=== PATIENT | male | born 1960 | race Two or more races ===

== ENCOUNTER → 2017-04-08 | Outpatient (CLI) | payer OTHER | END | disposition home or self-care (01) | LOC: EMPHLTH 13:30 | PROVIDERS: ATTEND Internal Medicine | DX: Z02.1 Encounter for pre-employment examination (principal) | CPT/HCPCS: 86706; 86735; 86762; 86765; 86787 ==

== ENCOUNTER 2017-07-27 18:35 | Emergency (ER) | payer MEDICAID ==
[~2017-07-27] VITALS: Ht 165.1 cm; Wt 70.5 kg
[2017-07-27] MEDS ORDERED: LOSA50TA37 PO (19:14)
[2017-07-27] MEDS ORDERED: IPRATROPIUM BROMIDE 0.5 MG/2.5 ML NEB SOLUTION NEB ONE (20:30)
[2017-07-27] MEDS ORDERED: ALBUTEROL SULFATE 2.5 MG/0.5 ML NEB SOLUTION NEB ONE (20:30)
[2017-07-27 20:50] VITALS: BP 125/79
== END 2017-07-27 20:52 | disposition home or self-care (01) ==
LOC: EMS 18:36 → EEVIPCON 18:36 → EMS 20:52
DX: J40 Bronchitis, not specified as acute or chronic (principal); I10 Essential (primary) hypertension
CPT/HCPCS: 71046; 94640; 99284; J7613

== ENCOUNTER → 2017-09-25 | Outpatient (CLI) | payer OTHER ==
[~2017-09-25] MED LIST: LOSA50TA37 PO
[2017-09-25 10:58] LABS: BASOPHILS % (AUTO) 0.5 % (0.0-2.0); EOSINOPHILS % (AUTO) 0.5 % (1.0-6.0); HEMATOCRIT 47.5 % (41-53); HEMOGLOBIN 16.5 g/dL (13.5-17.5); LYMPHOCYTES # (AUTO) 1.8 K/uL (1.0-4.8); LYMPHOCYTES % (AUTO) 33.9 % (22.0-44.0); MEAN CORPUSCULAR HEMOGLOBIN 33.3 pg (26.0-34.0); MEAN CORPUSCULAR HGB CONC 34.7 G/dL (31.0-37.0); MEAN CORPUSCULAR VOLUME 96 fL (80-100); MONOCYTES # (AUTO) 0.5 K/uL (0.1-1.0); MONOCYTES % (AUTO) 9.4 % (2.0-9.0); NEUTROPHILS # (AUTO) 2.9 K/uL (1.8-7.7); NEUTROPHILS % (AUTO) 55.7 % (40.0-70.0); PLATELET COUNT (AUTO) 187 K/uL (150-450); RED BLOOD CELL COUNT(AUTO) 4.95 MIL/uL (4.50-5.90); RED CELL DISTRIBUTION WIDTH 13.9 % (11.5-14.5)
[2017-09-25 12:13] LABS: ALANINE AMINOTRANSFERASE 173 U/L (12-78); ALBUMIN 4.5 g/dL (3.4-5.0); ALKALINE PHOSPHATASE 48 U/L (46-116); ANION GAP 8 mmol/L (8-16); ASPARTATE AMINOTRANSFERASE 44 U/L (15-37); BILIRUBIN,TOTAL 0.7 mg/dL (0.1-1.0); CALCIUM, TOTAL 9.2 mg/dL (8.8-10.5); CARBON DIOXIDE 31 mmol/L (22-29); CHLORIDE 104 mmol/L (98-107); CHOL/HDL RATIO 2.4 (4.2-7.3); CHOLESTEROL 191 mg/dL (131-200); CREATININE 1.05 mg/dL (0.60-1.30); GLOMERULAR FILTR. RATE CALC > 60 mL/min (>60); GLUCOSE,RANDOM 101 mg/dL (70-110); HDL CHOLESTEROL 81 mg/dL (40-60); LDL CHOL (CALC.) 99 mg/dL (0-130); POTASSIUM 4.3 mmol/L (3.5-5.1); SODIUM SERUM 143 mmol/L (136-145); THYROID STIMULATING HORMONE 1.95 uIU/mL (0.36-3.74); TOTAL PROTEIN, SERUM 7.9 g/dL (6.4-8.2); TRIGLYCERIDES 54 mg/dL (15-150); UREA NITROGEN, BLOOD 19 mg/dL (7-18)
[2017-09-25 13:20] LABS: PROSTATE SPECIFIC ANTIGEN 2.38 ng/mL (0.00-4.00)
== END | disposition home or self-care (01) ==
LOC: LABPV 08:05
PROVIDERS: ATTEND Internal Medicine Infectious Disease
DX: Z00.00 Encounter for general adult medical examination without abnormal findings (principal); Z12.5 Encounter for screening for malignant neoplasm of prostate; Z12.11 Encounter for screening for malignant neoplasm of colon; E78.5 Hyperlipidemia, unspecified
CPT/HCPCS: 83036; 84153; 84154; 84443

== ENCOUNTER → 2018-06-12 | Outpatient (CLI) | payer OTHER ==
[~2018-06-12] MED LIST changes: -LOSA50TA37 PO; +LOSA50TA64 PO
[2018-06-12 09:37] LABS: BASOPHILS % (AUTO) 0.3 % (0.0-2.0); HEMOGLOBIN 15.7 g/dL (13.5-17.5); LYMPHOCYTES # (AUTO) 2.3 K/uL (1.0-4.8); LYMPHOCYTES % (AUTO) 39.6 % (22.0-44.0); MEAN CORPUSCULAR HEMOGLOBIN 32.9 pg (26.0-34.0); MEAN CORPUSCULAR HGB CONC 34.1 G/dL (31.0-37.0); MEAN CORPUSCULAR VOLUME 97 fL (80-100); MONOCYTES # (AUTO) 0.5 K/uL (0.1-1.0); MONOCYTES % (AUTO) 9.4 % (2.0-9.0); NEUTROPHILS # (AUTO) 2.8 K/uL (1.8-7.7); NEUTROPHILS % (AUTO) 49.7 % (40.0-70.0); PLATELET COUNT (AUTO) 173 K/uL (150-450); RED BLOOD CELL COUNT(AUTO) 4.77 MIL/uL (4.50-5.90); RED CELL DISTRIBUTION WIDTH 13.1 % (11.5-14.5)
[2018-06-12 09:51] LABS: HEMOGLOBIN A1C 5.5 % (4.5-6.2)
[2018-06-12 10:00] LABS: PROSTATE SPECIFIC ANTIGEN 2.09 ng/mL (0.00-4.00)
[2018-06-12 10:04] LABS: ALANINE AMINOTRANSFERASE 35 U/L (12-78); ALBUMIN 3.9 g/dL (3.4-5.0); ALKALINE PHOSPHATASE 47 U/L (46-116); ANION GAP 4 mmol/L (8-16); ASPARTATE AMINOTRANSFERASE 27 U/L (15-37); BILIRUBIN,TOTAL 0.6 mg/dL (0.1-1.0); CALCIUM, TOTAL 9.4 mg/dL (8.8-10.5); CARBON DIOXIDE 32 mmol/L (22-29); CHLORIDE 104 mmol/L (98-107); CHOL/HDL RATIO 2.1 (4.2-7.3); CHOLESTEROL 163 mg/dL (131-200); CREATININE 0.95 mg/dL (0.60-1.30); GLOMERULAR FILTR. RATE CALC > 60 mL/min (>60); GLUCOSE,RANDOM 95 mg/dL (70-110); HDL CHOLESTEROL 78 mg/dL (40-60); LDL CHOL (CALC.) 69 mg/dL (0-130); POTASSIUM 4.1 mmol/L (3.5-5.1); SODIUM SERUM 140 mmol/L (136-145); TOTAL PROTEIN, SERUM 7.2 g/dL (6.4-8.2); TRIGLYCERIDES 81 mg/dL (15-150); UREA NITROGEN, BLOOD 23 mg/dL (7-18)
== END | disposition home or self-care (01) ==
LOC: LABPV 07:38
PROVIDERS: ATTEND Internal Medicine Infectious Disease
DX: Z12.5 Encounter for screening for malignant neoplasm of prostate (principal); E78.5 Hyperlipidemia, unspecified
CPT/HCPCS: 83036; 84153; 84443

== ENCOUNTER 2018-07-15 08:54 | Emergency (ER) | payer OTHER ==
[~2018-07-15] VITALS: Ht 165.1 cm; Wt 67.7 kg
[2018-07-15] MEDS ORDERED: ATOR20TA86 PO (09:14)
[2018-07-15] MEDS ORDERED: KETOROLAC TROMETHAMINE 60 MG/2 ML VIAL IM ONE (09:45)
[2018-07-15] MEDS ORDERED: METHOCARBAMOL 500 MG TABLET PO ONE (09:45)
[2018-07-15 10:06] VITALS: BP 147/99
== END 2018-07-15 10:18 | disposition home or self-care (01) ==
LOC: EMS 08:55
DX: S39.012A Strain of muscle, fascia and tendon of lower back, initial encounter (principal); I10 Essential (primary) hypertension; E78.00 Pure hypercholesterolemia, unspecified; Z88.8 Allergy status to other drugs, medicaments and biological substances; V49.50XA Passenger injured in collision with unspecified motor vehicles in traffic accident, initial encounter; Y93.89 Activity, other specified; Y92.89 Other specified places as the place of occurrence of the external cause; Y99.8 Other external cause status
CPT/HCPCS: 96372; 99283; J1885

== ENCOUNTER → 2018-07-28 | Outpatient (CLI) | payer OTHER ==
[~2018-07-28] MED LIST changes: +ATOR20TA86 PO
== END | disposition home or self-care (01) ==
LOC: RADMN 13:03
PROVIDERS: ATTEND Internal Medicine Infectious Disease
DX: M51.36 Other intervertebral disc degeneration, lumbar region (principal)
CPT/HCPCS: 72100; 73502

== ENCOUNTER 2018-11-23 15:45 | Emergency (ER) | payer OTHER ==
[~2018-11-23] VITALS: Ht 162.6 cm; Wt 69.5 kg
[2018-11-23 17:30] VITALS: BP 142/99
[2018-11-23] MEDS ORDERED: KETOROLAC TROMETHAMINE 10 MG TABLET PO ONE (17:30)
== END 2018-11-23 17:39 | disposition home or self-care (01) ==
LOC: EMS 15:47
DX: S76.011A Strain of muscle, fascia and tendon of right hip, initial encounter (principal); I10 Essential (primary) hypertension; E78.00 Pure hypercholesterolemia, unspecified; V49.50XA Passenger injured in collision with unspecified motor vehicles in traffic accident, initial encounter; Y93.89 Activity, other specified; Y92.89 Other specified places as the place of occurrence of the external cause; Y99.8 Other external cause status

== ENCOUNTER → 2018-12-16 | Outpatient (CLI) | payer OTHER ==
[2018-12-16 09:13] LABS: ALANINE AMINOTRANSFERASE 21 U/L (12-78); ALKALINE PHOSPHATASE 43 U/L (46-116); ANION GAP 4 mmol/L (8-16); ASPARTATE AMINOTRANSFERASE 19 U/L (15-37); BILIRUBIN,TOTAL 0.6 mg/dL (0.1-1.0); CALCIUM, TOTAL 9.1 mg/dL (8.8-10.5); CARBON DIOXIDE 30 mmol/L (22-29); CHLORIDE 104 mmol/L (98-107); CHOL/HDL RATIO 2.2 (4.2-7.3); CHOLESTEROL 192 mg/dL (131-200); CREATININE 0.98 mg/dL (0.60-1.30); GLOMERULAR FILTR. RATE CALC > 60 mL/min (>60); GLUCOSE,RANDOM 100 mg/dL (70-110); HDL CHOLESTEROL 86 mg/dL (40-60); LDL CHOL (CALC.) 89 mg/dL (0-130); POTASSIUM 4.7 mmol/L (3.5-5.1); SODIUM SERUM 138 mmol/L (136-145); TOTAL PROTEIN, SERUM 6.9 g/dL (6.4-8.2); TRIGLYCERIDES 84 mg/dL (15-150); UREA NITROGEN, BLOOD 13 mg/dL (7-18)
== END | disposition home or self-care (01) ==
LOC: LABMN 08:33
PROVIDERS: ATTEND Internal Medicine
DX: E78.2 Mixed hyperlipidemia (principal)

== ENCOUNTER → 2019-01-29 | Outpatient (CLI) | payer MEDICARE, OTHER | END | disposition home or self-care (01) | LOC: LABPV 07:34 | PROVIDERS: ATTEND Internal Medicine | DX: Z12.11 Encounter for screening for malignant neoplasm of colon (principal) | CPT/HCPCS: 82271 ==

== ENCOUNTER 2019-03-18 08:05 | Day surgery (SDC) | payer OTHER ==
[~2019-03-18] VITALS: Ht 165.1 cm; Wt 69.5 kg
[~2019-03-18 08:05] MED LIST changes: -ATOR20TA86 PO; +SODIUM CHLORIDE 0.9% 1,000 ML IV ONE
[2019-03-18] MEDS ORDERED: LIDOCAINE/PF 2% 5 ML VIAL IM ONE (08:06)
[2019-03-18] MEDS ORDERED: PROPOFOL 1% 20 ML VIAL IVP ONE (08:06)
[2019-03-18] MEDS ORDERED: OXYGEN THERAPY IH SCH (10:30)
== END 2019-03-18 11:50 | disposition home or self-care (01) ==
LOC: SURGERY 08:05
PROVIDERS: ATTEND Specialist
DX: Z12.11 Encounter for screening for malignant neoplasm of colon (principal); D12.2 Benign neoplasm of ascending colon; D12.4 Benign neoplasm of descending colon; I10 Essential (primary) hypertension; Z85.3 Personal history of malignant neoplasm of breast; Z98.890 Other specified postprocedural states
CPT/HCPCS: 45385; 88305; C1769; J2704; J3490; J7030

== ENCOUNTER → 2019-09-11 | Outpatient (CLI) | payer OTHER ==
[~2019-09-11] MED LIST changes: +LOSA50TA37 PO; -LOSA50TA64 PO; -SODIUM CHLORIDE 0.9% 1,000 ML IV ONE
[2019-09-11 09:17] LABS: ALANINE AMINOTRANSFERASE 34 U/L (12-78); ALBUMIN 4.2 g/dL (3.4-5.0); ALKALINE PHOSPHATASE 54 U/L (46-116); ANION GAP 9 mmol/L (8-16); ASPARTATE AMINOTRANSFERASE 21 U/L (15-37); BILIRUBIN,TOTAL 0.6 mg/dL (0.1-1.0); CALCIUM, TOTAL 9.4 mg/dL (8.8-10.5); CARBON DIOXIDE 27 mmol/L (22-29); CHLORIDE 104 mmol/L (98-107); CHOLESTEROL 197 mg/dL (131-200); CREATININE 1.03 mg/dL (0.60-1.30); GLOMERULAR FILTR. RATE CALC > 60 mL/min (>60); GLUCOSE,RANDOM 122 mg/dL (70-110); HDL CHOLESTEROL 66 mg/dL (40-60); LDL CHOL (CALC.) 105 mg/dL (0-130); SODIUM SERUM 140 mmol/L (136-145); TOTAL PROTEIN, SERUM 7.5 g/dL (6.4-8.2); TRIGLYCERIDES 128 mg/dL (15-150); UREA NITROGEN, BLOOD 13 mg/dL (7-18)
== END | disposition home or self-care (01) ==
LOC: LABMN 07:19
PROVIDERS: ATTEND Internal Medicine
DX: Z12.5 Encounter for screening for malignant neoplasm of prostate (principal); E78.2 Mixed hyperlipidemia
CPT/HCPCS: 84154

== ENCOUNTER 2019-12-24 05:15 | Inpatient (IN) | payer OTHER ==
[~2019-12-24] VITALS: Ht 165.1 cm; Wt 74.4 kg
[~2019-12-24 05:15] MED LIST changes: +ASPI-728 PO; +ATOR40TA28 PO; +CeFAZolin 2 GM/DEXTROSE 50 ML IV ONE; +RINGERS SOLUTION,LACTATED 1,000 ML IV ONE
[2019-12-24] MEDS ORDERED: FentaNYL CITRATE-PF 100 MCG/2 ML VIAL IVP ONE (05:16)
[2019-12-24] MEDS ORDERED: MIDAZOLAM HCL 2 MG/2 ML VIAL IVP ONE (05:16)
[2019-12-24] MEDS ORDERED: BUPIVACAINE HCL/PF 0.5% 30 ML VIAL ONE (06:36)
[2019-12-24] MEDS ORDERED: LIDOCAINE/PF 1% 30 ML VIAL ONE (06:36)
[2019-12-24] MEDS ORDERED: SODIUM CL IRRIG SOLN BAG 6,000 ML IRRIG ONE ×2 (06:37→12:09)
[2019-12-24] MEDS ORDERED: EPINEPHrine 1:1,000 [1 MG/ML] AMP ONE (06:45)
[2019-12-24] MEDS ORDERED: CeFAZolin 2 GM/DEXTROSE 50 ML IV ONE (07:00)
[2019-12-24] MEDS ORDERED: RINGERS SOLUTION,LACTATED 1,000 ML IV ONE ×2 (07:00→08:49)
[2019-12-24] MEDS ORDERED: ACETAMINOPHEN 1000 MG/ISO-OSM 100 ML IV ONE (07:41)
[2019-12-24] MEDS ORDERED: OxyCODONE HCL/ACETAMINOPHEN 5-325 MG TABLET PO ONE (07:47)
[2019-12-24] MEDS ORDERED: OxyCODONE HCL/ACETAMINOPHEN 5-325 MG TABLET PO PRN ×2 (08:00→08:15)
[2019-12-24] MEDS ORDERED: MEPERIDINE-PF 25 MG/ML VIAL IVP PRN (08:15)
[2019-12-24] MEDS ORDERED: HYDROmorphone 2 MG/ML SYRINGE IVP PRN ×2 (08:15)
[2019-12-24] MEDS ORDERED: ONDANSETRON HCL 4 MG/2 ML VIAL IVP PRN ×2 (08:15→19:45)
[2019-12-24] MEDS ORDERED: FentaNYL CITRATE-PF 100 MCG/2 ML VIAL IVP PRN (08:15)
[2019-12-24] MEDS ORDERED: SODIUM CL IRRIG SOLN BAG 12,000 ML IRRIG ONE (11:09)
[2019-12-24] MEDS ORDERED: SODIUM CL IRRIG SOLN BAG 3,000 ML IRRIG ONE (11:50)
[2019-12-24] MEDS ORDERED: SUGAMMADEX SODIUM 200 MG/2 ML VIAL IVP ONE (12:29)
[2019-12-24] MEDS ORDERED: HydrALAZINE HCL 20 MG/ML VIAL ONE (13:57)
[2019-12-24] MEDS ORDERED: HydrALAZINE HCL 20 MG/ML VIAL IVP PRN (14:00)
[2019-12-24] MEDS ORDERED: HydrALAZINE HCL 20 MG/ML VIAL IVP ONE (14:00)
[2019-12-24 17:00] VITALS: BP 152/91
[2019-12-24 18:30] VITALS: BP 149/85
[2019-12-24] MEDS ORDERED: IPRATROPIUM BROMIDE 0.5 MG/2.5 ML NEB SOLUTION NEB PRN (19:45)
[2019-12-24] MEDS ORDERED: ZOLPIDEM TARTRATE 5 MG TABLET PO PRN (19:45)
[2019-12-24] MEDS ORDERED: ACETAMINOPHEN 325 MG TABLET PO PRN (19:45)
[2019-12-24] MEDS ORDERED: ALBUTEROL SULFATE 2.5 MG/0.5 ML NEB SOLUTION NEB PRN (19:45)
[2019-12-24] MEDS ORDERED: MAGNESIUM HYDROXIDE SUSPENSION 30 ML UDCUP PO PRN (19:45)
[2019-12-24] MEDS ORDERED: BISACODYL 10 MG RECTAL RECTAL SUPPOSITORY PR PRN (19:45)
[2019-12-24] MEDS: MORPHINE SULFATE 2 MG/ML SYRINGE IVP PRN (19:55)
[2019-12-24 20:00] VITALS: BP 128/77
[2019-12-24] MEDS: DOCUSATE SODIUM 100 MG CAPSULE PO SCH (20:52)
[2019-12-25] MEDS: MORPHINE SULFATE 2 MG/ML SYRINGE IVP PRN (03:52)
[2019-12-25 04:00] VITALS: BP 142/79
[2019-12-25] MEDS: OXYGEN THERAPY IH SCH ×2 (08:00→20:00)
[2019-12-25] MEDS: HYDROCODONE/ACETAMINOPHEN 5-325 MG TABLET PO PRN ×2 (08:14→12:23)
[2019-12-25] MEDS: ATORVASTATIN CALCIUM 40 MG TABLET PO SCH (08:15)
[2019-12-25] MEDS: DOCUSATE SODIUM 100 MG CAPSULE PO SCH ×2 (08:15→21:00)
[2019-12-25] MEDS: LOSARTAN POTASSIUM 50 MG TABLET PO SCH (08:15)
[2019-12-25] MEDS: CYCLOBENZAPRINE HCL 10 MG TABLET PO SCH ×3 (08:16→19:04)
[2019-12-25 08:58] VITALS: BP 125/72
[2019-12-25 11:27] VITALS: BP 132/82
[2019-12-25 11:44] LABS: BASOPHILS % (AUTO) 0.1 % (0.0-2.0); EOSINOPHILS % (AUTO) 0.1 % (1.0-6.0); HEMOGLOBIN 13.5 g/dL (13.5-17.5); LYMPHOCYTES # (AUTO) 1.6 K/uL (1.0-4.8); LYMPHOCYTES % (AUTO) 14.6 % (22.0-44.0); MEAN CORPUSCULAR HGB CONC 34.5 G/dL (31.0-37.0); MEAN CORPUSCULAR VOLUME 96 fL (80-100); MONOCYTES # (AUTO) 1.2 K/uL (0.1-1.0); MONOCYTES % (AUTO) 11.1 % (2.0-9.0); NEUTROPHILS % (AUTO) 74.1 % (40.0-70.0); PLATELET COUNT (AUTO) 152 K/uL (150-450); RED BLOOD CELL COUNT(AUTO) 4.08 MIL/uL (4.50-5.90); RED CELL DISTRIBUTION WIDTH 13.3 % (11.5-14.5)
[2019-12-25 12:07] LABS: ANION GAP 6 mmol/L (8-16); CALCIUM, TOTAL 8.5 mg/dL (8.8-10.5); CARBON DIOXIDE 27 mmol/L (22-29); CHLORIDE 108 mmol/L (98-107); CREATININE 1.04 mg/dL (0.60-1.30); GLOMERULAR FILTR. RATE CALC > 60 mL/min (>60); GLUCOSE,RANDOM 111 mg/dL (70-110); POTASSIUM 3.5 mmol/L (3.5-5.1); SODIUM SERUM 141 mmol/L (136-145); UREA NITROGEN, BLOOD 14 mg/dL (7-18)
[2019-12-25] MEDS ORDERED: OxyCODONE HCL/ACETAMINOPHEN 10-325 MG TABLET PO PRN (13:00)
[2019-12-25] MEDS: HYDROmorphone 2 MG/ML SYRINGE IVP PRN (18:10)
[2019-12-25 19:00] VITALS: BP 131/75
[2019-12-25 19:20] VITALS: BP 125/74
[2019-12-25 23:53] VITALS: BP 132/76
[2019-12-26] MEDS: CYCLOBENZAPRINE HCL 10 MG TABLET PO SCH ×2 (00:27→06:13)
[2019-12-26 04:24] VITALS: BP 120/89
[2019-12-26] MEDS ORDERED: ONDANSETRON HCL 4 MG/2 ML VIAL IVP ONE (05:20)
[2019-12-26] MEDS ORDERED: KETOROLAC TROMETHAMINE 60 MG/2 ML VIAL IM ONE (05:20)
[2019-12-26] MEDS ORDERED: DEXAMETHASONE SOD PHOS 4 MG/ML VIAL IVP ONE (05:20)
[2019-12-26] MEDS ORDERED: ROCURONIUM BROMIDE 10 MG/ML 5 ML VIAL IVP ONE (05:20)
[2019-12-26] MEDS ORDERED: SUGAMMADEX SODIUM 200 MG/2 ML VIAL IVP ONE (05:20)
[2019-12-26] MEDS ORDERED: NEOSTIGMINE METHYLSULFATE 1 MG/ML 10 ML VIAL IVP ONE (05:20)
[2019-12-26] MEDS ORDERED: METOCLOPRAMIDE HCL 5 MG/ML 2 ML VIAL IVP ONE (05:20)
[2019-12-26] MEDS ORDERED: PROPOFOL 1% 20 ML VIAL IVP ONE (05:20)
[2019-12-26] MEDS: HYDROmorphone 2 MG/ML SYRINGE IVP PRN ×3 (06:44→08:32)
[2019-12-26 08:16] VITALS: BP 129/96
[2019-12-26] MEDS: LOSARTAN POTASSIUM 50 MG TABLET PO SCH (08:31)
[2019-12-26] MEDS: ATORVASTATIN CALCIUM 40 MG TABLET PO SCH (08:31)
[2019-12-26] MEDS: DOCUSATE SODIUM 100 MG CAPSULE PO SCH (08:40)
[2019-12-26] MEDS ORDERED: OXYC-38 PO (09:53)
[2019-12-26] MEDS ORDERED: DOCU-275 PO (09:54)
[2019-12-26 11:32] VITALS: BP 136/86
== END 2019-12-26 15:41 | disposition home or self-care (01) | DRG 482 ==
LOC: OBSVTOIN 05:15 → 5S 05:15 → PREINTOOBSV 15:50 → 4E 17:25 → 5S 12-25 13:00
PROVIDERS: ADMIT Orthopaedic Surgery; ATTEND Orthopaedic Surgery
PROC: 0YB Anatomical Regions, Lower Extremities, Excision (ICD-10-PCS; 2019-12-24)
PROC: 0QQ Lower Bones, Repair (ICD-10-PCS; 2019-12-24)
PROC: 0SQ94ZZ Repair Right Hip Joint, Percutaneous Endoscopic Approach (ICD-10-PCS; principal; 2019-12-24 07:00)
DX: S73.191A Other sprain of right hip, initial encounter (principal); E78.5 Hyperlipidemia, unspecified; I10 Essential (primary) hypertension; E78.00 Pure hypercholesterolemia, unspecified; V89.2XXA Person injured in unspecified motor-vehicle accident, traffic, initial encounter; Y93.89 Activity, other specified; Y92.410 Unspecified street and highway as the place of occurrence of the external cause; Y99.8 Other external cause status; Z20.828 Contact with and (suspected) exposure to other viral communicable diseases
CPT/HCPCS: 72170; 84443; 97116; 97161; 97165; 97530; 97535; J0131; J0171; J0360; J0690; J1100; J1170; J1885; J2250; J2270; J2405; J2704; J2765; J3010; J3490; J7120

== ENCOUNTER 2020-02-05 22:18 | Emergency (ER) | payer OTHER ==
[~2020-02-05] VITALS: Ht 165.1 cm; Wt 70.5 kg
[~2020-02-05 22:18] MED LIST changes: -CeFAZolin 2 GM/DEXTROSE 50 ML IV ONE; +DOCU-275 PO; +OXYC-38 PO; -RINGERS SOLUTION,LACTATED 1,000 ML IV ONE
[2020-02-05 22:21] VITALS: BP 141/99
[2020-02-05] MEDS ORDERED: LOSA50TA37 PO (22:28)
[2020-02-05] MEDS ORDERED: ATOR20TA86 PO (22:28)
[2020-02-05] MEDS ORDERED: FURO40 PO (22:28)
[2020-02-05] MEDS ORDERED: POTA-92 PO (22:28)
[2020-02-06] MEDS ORDERED: ACETAMINOPHEN 500 MG TABLET PO ONE (01:30)
== END 2020-02-06 01:36 | disposition home or self-care (01) ==
LOC: EMS 22:18
DX: I10 Essential (primary) hypertension (principal); E78.00 Pure hypercholesterolemia, unspecified; Z79.899 Other long term (current) drug therapy
CPT/HCPCS: Z7502; Z7610

== ENCOUNTER → 2020-02-12 | Outpatient (CLI) | payer OTHER ==
[~2020-02-12] MED LIST changes: -ASPI-728 PO; +ATOR20TA86 PO; -ATOR40TA28 PO; -DOCU-275 PO; +FURO40 PO; -OXYC-38 PO; +POTA-92 PO
[2020-02-12 12:56] LABS: BASOPHILS % (AUTO) 0.3 % (0.0-2.0); EOSINOPHILS % (AUTO) 0.5 % (1.0-6.0); HEMATOCRIT 50.5 % (41-53); HEMOGLOBIN 16.8 g/dL (13.5-17.5); LYMPHOCYTES % (AUTO) 34.4 % (22.0-44.0); MEAN CORPUSCULAR HEMOGLOBIN 31.9 pg (26.0-34.0); MEAN CORPUSCULAR HGB CONC 33.3 G/dL (31.0-37.0); MEAN CORPUSCULAR VOLUME 96 fL (80-100); MONOCYTES # (AUTO) 0.5 K/uL (0.1-1.0); NEUTROPHILS # (AUTO) 3.2 K/uL (1.8-7.7); NEUTROPHILS % (AUTO) 55.8 % (40.0-70.0); PLATELET COUNT (AUTO) 215 K/uL (150-450); RED BLOOD CELL COUNT(AUTO) 5.26 MIL/uL (4.50-5.90); RED CELL DISTRIBUTION WIDTH 13.2 % (11.5-14.5)
[2020-02-12 13:04] LABS: HEMOGLOBIN A1C 5.4 % (3.8-5.6)
[2020-02-12 13:19] LABS: ALANINE AMINOTRANSFERASE 41 U/L (12-78); ALKALINE PHOSPHATASE 56 U/L (46-116); ANION GAP 6 mmol/L (8-16); ASPARTATE AMINOTRANSFERASE 18 U/L (15-37); BILIRUBIN,TOTAL 0.5 mg/dL (0.1-1.0); CALCIUM, TOTAL 9.1 mg/dL (8.8-10.5); CARBON DIOXIDE 31 mmol/L (22-29); CHLORIDE 104 mmol/L (98-107); CHOL/HDL RATIO 3.2 (4.2-7.3); CHOLESTEROL 185 mg/dL (131-200); CREATININE 1.05 mg/dL (0.60-1.30); GLOMERULAR FILTR. RATE CALC > 60 mL/min (>60); GLUCOSE,RANDOM 105 mg/dL (70-110); HDL CHOLESTEROL 58 mg/dL (40-60); LDL CHOL (CALC.) 106 mg/dL (0-130); POTASSIUM 4.1 mmol/L (3.5-5.1); SODIUM SERUM 141 mmol/L (136-145); THYROID STIMULATING HORMONE 2.24 uIU/mL (0.36-3.74); TRIGLYCERIDES 107 mg/dL (15-150); UREA NITROGEN, BLOOD 20 mg/dL (7-18)
[2020-02-12 13:25] LABS: PROSTATE SPECIFIC ANTIGEN 2.28 ng/mL (0.00-4.00)
== END | disposition home or self-care (01) ==
LOC: LABPV 10:54
PROVIDERS: ATTEND Internal Medicine
DX: Z12.5 Encounter for screening for malignant neoplasm of prostate (principal); E78.2 Mixed hyperlipidemia; Z79.899 Other long term (current) drug therapy
CPT/HCPCS: 83036; 84153; 84443

== ENCOUNTER 2020-05-11 19:02 | Inpatient (IN) | payer OTHER ==
[~2020-05-11] VITALS: Ht 165.1 cm; Wt 70.5 kg
[2020-05-11] MEDS ORDERED: HYDROCODONE/ACETAMINOPHEN 5-325 MG TABLET PO ONE (19:30)
[2020-05-11] MEDS ORDERED: OxyCODONE HCL 5 MG IR TABLET PO ONE (23:45)
[2020-05-11] MEDS ORDERED: KETOROLAC TROMETHAMINE 30 MG/ML VIAL IM ONE (23:45)
[2020-05-12] MEDS ORDERED: MORPHINE SULFATE 2 MG/ML SYRINGE IVP ONE (01:30)
[2020-05-12 01:41] LABS: COVID AG,FIA SOURCE NASOPHARYNGEAL
[2020-05-12 01:46] LABS: BASOPHILS % (AUTO) 0.8 % (0.0-2.0); EOSINOPHILS % (AUTO) 0.8 % (1.0-6.0); HEMATOCRIT 45.5 % (41-53); HEMOGLOBIN 15.3 g/dL (13.5-17.5); LYMPHOCYTES # (AUTO) 1.9 K/uL (1.0-4.8); LYMPHOCYTES % (AUTO) 24.1 % (22.0-44.0); MEAN CORPUSCULAR HEMOGLOBIN 31.2 pg (26.0-34.0); MEAN CORPUSCULAR HGB CONC 33.5 G/dL (31.0-37.0); MEAN CORPUSCULAR VOLUME 93 fL (80-100); MONOCYTES # (AUTO) 0.9 K/uL (0.1-1.0); MONOCYTES % (AUTO) 11.6 % (2.0-9.0); NEUTROPHILS # (AUTO) 4.9 K/uL (1.8-7.7); NEUTROPHILS % (AUTO) 62.7 % (40.0-70.0); PLATELET COUNT (AUTO) 176 K/uL (150-450); RED BLOOD CELL COUNT(AUTO) 4.88 MIL/uL (4.50-5.90); RED CELL DISTRIBUTION WIDTH 13.2 % (11.5-14.5)
[2020-05-12 01:50] LABS: ANION GAP 10 mmol/L (8-16); CALCIUM, TOTAL 8.4 mg/dL (8.8-10.5); CARBON DIOXIDE 27 mmol/L (22-29); CHLORIDE 102 mmol/L (98-107); CREATININE 1.02 mg/dL (0.60-1.30); GLOMERULAR FILTR. RATE CALC > 60 mL/min (>60); GLUCOSE,RANDOM 99 mg/dL (70-110); POTASSIUM 3.5 mmol/L (3.5-5.1); SODIUM SERUM 139 mmol/L (136-145); UREA NITROGEN, BLOOD 18 mg/dL (7-18)
[2020-05-12 01:57] LABS: ALANINE AMINOTRANSFERASE 32 U/L (12-78); ALBUMIN 3.6 g/dL (3.4-5.0); ALKALINE PHOSPHATASE 61 U/L (46-116); ASPARTATE AMINOTRANSFERASE 17 U/L (15-37); BILIRUBIN,TOTAL 0.4 mg/dL (0.1-1.0)
[2020-05-12 05:42] VITALS: BP 155/78
[2020-05-12] MEDS ORDERED: ONDANSETRON HCL 4 MG/2 ML VIAL IVP PRN (05:45)
[2020-05-12] MEDS ORDERED: MORPHINE SULFATE 2 MG/ML SYRINGE IVP PRN ×2 (05:45→09:45)
[2020-05-12] MEDS: HEPARIN SODIUM,PORCINE 5,000 UNITS/ML VIAL SQ SCH ×3 (08:00→15:39)
[2020-05-12] MEDS: ATORVASTATIN CALCIUM 20 MG TABLET PO SCH (08:28)
[2020-05-12] MEDS: LOSARTAN POTASSIUM 50 MG TABLET PO SCH (08:28)
[2020-05-12] MEDS: DOCUSATE SODIUM 100 MG CAPSULE PO SCH ×2 (08:28→20:14)
[2020-05-12] MEDS: POTASSIUM CHLORIDE 10 MEQ ER TABLET PO SCH (08:29)
[2020-05-12] MEDS: FUROSEMIDE 40 MG TABLET PO SCH ×2 (08:29→08:34)
[2020-05-12 08:40] VITALS: BP 138/72
[2020-05-12] MEDS ORDERED: MORPHINE SULFATE 4 MG/ML SYRINGE IVP PRN (11:15)
[2020-05-12] MEDS: OxyCODONE HCL/ACETAMINOPHEN 5-325 MG TABLET PO PRN (11:29)
[2020-05-12 16:24] VITALS: BP 138/82
[2020-05-12 20:00] VITALS: BP 136/92
[2020-05-12] MEDS: CYCLOBENZAPRINE HCL 10 MG TABLET PO PRN (20:14)
[2020-05-13 00:05] VITALS: BP 131/86
[2020-05-13 05:33] VITALS: BP 121/75
[2020-05-13] MEDS: ATORVASTATIN CALCIUM 20 MG TABLET PO SCH (08:33)
[2020-05-13] MEDS: FUROSEMIDE 40 MG TABLET PO SCH (08:33)
[2020-05-13] MEDS: POTASSIUM CHLORIDE 10 MEQ ER TABLET PO SCH (08:33)
[2020-05-13] MEDS: DOCUSATE SODIUM 100 MG CAPSULE PO SCH ×2 (08:33→23:14)
[2020-05-13] MEDS: HEPARIN SODIUM,PORCINE 5,000 UNITS/ML VIAL SQ SCH ×4 (08:34→23:17)
[2020-05-13] MEDS: OxyCODONE HCL/ACETAMINOPHEN 5-325 MG TABLET PO PRN ×2 (08:35→16:42)
[2020-05-13 09:09] VITALS: BP 127/95
[2020-05-13] MEDS: LOSARTAN POTASSIUM 50 MG TABLET PO SCH (12:10)
[2020-05-13] MEDS: CYCLOBENZAPRINE HCL 10 MG TABLET PO PRN ×2 (12:10→20:45)
[2020-05-13 12:12] VITALS: BP 147/93
[2020-05-13 20:38] VITALS: BP 126/85
[2020-05-14 04:19] VITALS: BP 128/84
[2020-05-14] MEDS: FUROSEMIDE 40 MG TABLET PO SCH (08:06)
[2020-05-14] MEDS: DOCUSATE SODIUM 100 MG CAPSULE PO SCH (08:06)
[2020-05-14] MEDS: LOSARTAN POTASSIUM 50 MG TABLET PO SCH (08:06)
[2020-05-14] MEDS: ATORVASTATIN CALCIUM 20 MG TABLET PO SCH (08:06)
[2020-05-14] MEDS: POTASSIUM CHLORIDE 10 MEQ ER TABLET PO SCH (08:06)
[2020-05-14] MEDS: HEPARIN SODIUM,PORCINE 5,000 UNITS/ML VIAL SQ SCH ×2 (08:07→16:18)
[2020-05-14] MEDS: CYCLOBENZAPRINE HCL 10 MG TABLET PO PRN (08:07)
[2020-05-14 08:13] VITALS: BP 128/91
[2020-05-14] MEDS ORDERED: PERCT PO ×2 (10:44→10:55)
[2020-05-14] MEDS ORDERED: CYCL10 PO (10:44)
[2020-05-14 15:16] VITALS: BP 132/97
== END 2020-05-14 21:15 | disposition home or self-care (01) | DRG 538 ==
LOC: EMS 19:02 → 6N 05-12 02:52
PROVIDERS: ADMIT Internal Medicine; ATTEND Internal Medicine
DX: S73.001A Unspecified subluxation of right hip, initial encounter (principal); E78.5 Hyperlipidemia, unspecified; I50.9 Heart failure, unspecified; I11.0 Hypertensive heart disease with heart failure; E78.00 Pure hypercholesterolemia, unspecified; Z20.822 Contact with and (suspected) exposure to COVID-19; W18.39XA Other fall on same level, initial encounter; Y99.0 Civilian activity done for income or pay; Y92.89 Other specified places as the place of occurrence of the external cause
CPT/HCPCS: 70450; 73502; 73721; 87426; J1644; J1885; J2270

== ENCOUNTER 2020-06-03 07:10 | Inpatient (IN) | payer OTHER ==
[2020-05-31 16:23] LABS: COVID AG,FIA SOURCE NASOPHARYNGEAL
[~2020-06-03] VITALS: Ht 165.1 cm; Wt 70.5 kg
[~2020-06-03 07:10] MED LIST changes: +CYCL10 PO; +PERCT PO
[2020-06-03 08:12] LABS: BASOPHILS % (AUTO) 0.5 % (0.0-2.0); EOSINOPHILS % (AUTO) 0.6 % (1.0-6.0); HEMATOCRIT 49.1 % (41-53); HEMOGLOBIN 16.4 g/dL (13.5-17.5); LYMPHOCYTES # (AUTO) 1.4 K/uL (1.0-4.8); LYMPHOCYTES % (AUTO) 25.1 % (22.0-44.0); MEAN CORPUSCULAR HEMOGLOBIN 31.5 pg (26.0-34.0); MEAN CORPUSCULAR HGB CONC 33.5 G/dL (31.0-37.0); MEAN CORPUSCULAR VOLUME 94 fL (80-100); MONOCYTES # (AUTO) 0.5 K/uL (0.1-1.0); MONOCYTES % (AUTO) 9.3 % (2.0-9.0); NEUTROPHILS # (AUTO) 3.7 K/uL (1.8-7.7); NEUTROPHILS % (AUTO) 64.5 % (40.0-70.0); PLATELET COUNT (AUTO) 183 K/uL (150-450); RED BLOOD CELL COUNT(AUTO) 5.21 MIL/uL (4.50-5.90); RED CELL DISTRIBUTION WIDTH 13.7 % (11.5-14.5)
[2020-06-03 08:30] LABS: INR 0.9 (0.9-1.1); PROTHROMBIN TIME 9.8 SEC (9.4-11.6)
[2020-06-03 08:33] LABS: ANION GAP 4 mmol/L (8-16); CALCIUM, TOTAL 9.5 mg/dL (8.8-10.5); CARBON DIOXIDE 31 mmol/L (22-29); CHLORIDE 107 mmol/L (98-107); CREATININE 1.09 mg/dL (0.60-1.30); GLOMERULAR FILTR. RATE CALC > 60 mL/min (>60); GLUCOSE,RANDOM 107 mg/dL (70-110); POTASSIUM 5.8 mmol/L (3.5-5.1); SODIUM SERUM 142 mmol/L (136-145); UREA NITROGEN, BLOOD 18 mg/dL (7-18)
[2020-06-03 08:38] LABS: ALANINE AMINOTRANSFERASE 39 U/L (12-78); ALBUMIN 3.7 g/dL (3.4-5.0); ALKALINE PHOSPHATASE 59 U/L (46-116); ASPARTATE AMINOTRANSFERASE 17 U/L (15-37); BILIRUBIN,TOTAL 0.7 mg/dL (0.1-1.0); TOTAL PROTEIN, SERUM 7.1 g/dL (6.4-8.2)
[2020-06-03] MEDS ORDERED: RINGERS SOLUTION,LACTATED 1,000 ML IV ONE ×2 (11:00→11:01)
== END 2020-06-03 12:40 | disposition home or self-care (01) | DRG 556 ==
LOC: 4E 07:10 → UNDOADMIN 07:12 → 4E 07:12
PROVIDERS: ADMIT Orthopaedic Surgery; ATTEND Orthopaedic Surgery
DX: M25.551 Pain in right hip (principal); I10 Essential (primary) hypertension
CPT/HCPCS: 87081; 87426; 93005; G0378; J7120

== ENCOUNTER → 2020-06-06 | Outpatient (CLI) | payer OTHER ==
[2020-06-06 08:07] LABS: BASOPHILS % (AUTO) 0.4 % (0.0-2.0); EOSINOPHILS % (AUTO) 0.5 % (1.0-6.0); HEMATOCRIT 49.1 % (41-53); HEMOGLOBIN 16.4 g/dL (13.5-17.5); LYMPHOCYTES # (AUTO) 1.7 K/uL (1.0-4.8); LYMPHOCYTES % (AUTO) 25.7 % (22.0-44.0); MEAN CORPUSCULAR HEMOGLOBIN 31.6 pg (26.0-34.0); MEAN CORPUSCULAR HGB CONC 33.3 G/dL (31.0-37.0); MEAN CORPUSCULAR VOLUME 95 fL (80-100); MONOCYTES # (AUTO) 0.6 K/uL (0.1-1.0); MONOCYTES % (AUTO) 9.1 % (2.0-9.0); NEUTROPHILS # (AUTO) 4.2 K/uL (1.8-7.7); NEUTROPHILS % (AUTO) 64.3 % (40.0-70.0); PLATELET COUNT (AUTO) 174 K/uL (150-450); RED BLOOD CELL COUNT(AUTO) 5.17 MIL/uL (4.50-5.90); RED CELL DISTRIBUTION WIDTH 13.4 % (11.5-14.5)
[2020-06-06 08:20] LABS: HEMOGLOBIN A1C 5.7 % (3.8-5.6)
[2020-06-06 08:49] LABS: ALANINE AMINOTRANSFERASE 43 U/L (12-78); ALBUMIN 4.1 g/dL (3.4-5.0); ALKALINE PHOSPHATASE 57 U/L (46-116); ANION GAP 6 mmol/L (8-16); ASPARTATE AMINOTRANSFERASE 19 U/L (15-37); BILIRUBIN,TOTAL 0.6 mg/dL (0.1-1.0); CALCIUM, TOTAL 9.8 mg/dL (8.8-10.5); CARBON DIOXIDE 29 mmol/L (22-29); CHLORIDE 107 mmol/L (98-107); CHOL/HDL RATIO 2.1 (4.2-7.3); CHOLESTEROL 158 mg/dL (131-200); CREATININE 1.07 mg/dL (0.60-1.30); GLOMERULAR FILTR. RATE CALC > 60 mL/min (>60); GLUCOSE,RANDOM 107 mg/dL (70-110); HDL CHOLESTEROL 77 mg/dL (40-60); LDL CHOL (CALC.) 68 mg/dL (0-130); POTASSIUM 5.7 mmol/L (3.5-5.1); SODIUM SERUM 142 mmol/L (136-145); THYROID STIMULATING HORMONE 1.69 uIU/mL (0.36-3.74); TOTAL PROTEIN, SERUM 7.6 g/dL (6.4-8.2); TRIGLYCERIDES 65 mg/dL (15-150); UREA NITROGEN, BLOOD 14 mg/dL (7-18)
[2020-06-06 08:56] LABS: PROSTATE SPECIFIC ANTIGEN 1.98 ng/mL (0.00-4.00)
== END | disposition home or self-care (01) ==
LOC: LABPV 07:31
PROVIDERS: ATTEND Internal Medicine
DX: Z12.5 Encounter for screening for malignant neoplasm of prostate (principal); Z12.11 Encounter for screening for malignant neoplasm of colon; E78.2 Mixed hyperlipidemia; E87.5 Hyperkalemia
CPT/HCPCS: 83036; 84153; 84154; 84443

== ENCOUNTER → 2020-06-09 | Outpatient (CLI) | payer OTHER | END | disposition home or self-care (01) | LOC: LABMN 06-08 13:56 | PROVIDERS: ATTEND Orthopaedic Surgery | DX: Z01.812 Encounter for preprocedural laboratory examination (principal) | CPT/HCPCS: 84132 ==

== ENCOUNTER → 2020-06-13 | Outpatient (CLI) | payer OTHER | END | disposition home or self-care (01) | LOC: LABPV 10:33 | PROVIDERS: ATTEND Internal Medicine | DX: E78.5 Hyperlipidemia, unspecified (principal) | CPT/HCPCS: 84132 ==

== ENCOUNTER 2023-08-21 11:34 | Emergency (ER) | payer MEDICAID, OTHER ==
[~2023-08-21] VITALS: Ht 165.1 cm; Wt 68.2 kg
[~2023-08-21 11:34] MED LIST changes: +ACET-3385 PO; +ASPI-1450 PO; +ATOR20TA PO; -ATOR20TA86 PO; -CYCL10 PO; +DOCU-385 PO; -FURO40 PO; -LOSA50TA37 PO; +OXYC10TA59 PO; -PERCT PO; -POTA-92 PO
[2023-08-21 11:37] VITALS: TEMP 98
[2023-08-21 14:47] VITALS: BP 132/70; PULSE 80; RESP 16
== END 2023-08-21 15:00 | disposition home or self-care (01) ==
LOC: EMS 11:34
DX: M20.022 Boutonniere deformity of left finger(s) (principal); E78.00 Pure hypercholesterolemia, unspecified; I10 Essential (primary) hypertension; Z98.890 Other specified postprocedural states
CPT/HCPCS: 99283